=== PATIENT | female | born 1980 | race Two or more races ===

== ENCOUNTER 2021-06-12 07:16 | Emergency (ER) | payer BC ==
[~2021-06-12] VITALS: Ht 172.7 cm; Wt 69.4 kg
--- NOTE | 2021-06-12 07:25 | NUR ---
[id number] FROM HOME C/O LOWER BACK PAIN RADIATES TO THE LEGS S/P TRIPPED. AAOX4 IN PAIN 12/07
--- NOTE | 2021-06-12 07:35 | NUR ---
AT BED SIDE
[2021-06-12] MEDS ORDERED: ONDANSETRON 4 MG TAB.RAPDIS ONE (07:47)
[2021-06-12] MEDS ORDERED: MORPHINE SULFATE INJ 4 MG/ML DISP.SYRIN ONE (07:47)
[2021-06-12] MEDS ORDERED: ONDANSETRON 4 MG TAB.RAPDIS PO ONE (08:00)
[2021-06-12] MEDS ORDERED: MORPHINE SULFATE INJ 2 MG/ML DISP.SYRIN IM ONE (08:00)
--- NOTE | 2021-06-12 08:05 | NUR ---
X-RAY TECH. AT BED SIDE
[2021-06-12] MEDS ORDERED: IBUPROFEN 600 MG TABLET ONE (09:43)
[2021-06-12] MEDS ORDERED: HYDROCODONE/APAP 10/325MG TABLET ONE (09:43)
[2021-06-12] MEDS ORDERED: IBUP-1955 PO (09:55)
[2021-06-12] MEDS ORDERED: HYDR-3972 PO (09:55)
[2021-06-12] MEDS ORDERED: IBUPROFEN 600 MG TABLET PO ONE (10:00)
[2021-06-12] MEDS ORDERED: HYDROCODONE/APAP 10/325MG TABLET PO ONE (10:00)
--- NOTE | 2021-06-12 10:07 | NUR ---
Patient discharged to home in stable condition. Written and verbal after care instructions given. Patient verbalizes understanding of instruction.
[2021-06-12 10:08] VITALS: BP 102/60
== END 2021-06-12 10:09 | disposition home or self-care (01) ==
LOC: ER 07:34
DX: S30.0XXA Contusion of lower back and pelvis, initial encounter (principal); W01.0XXA Fall on same level from slipping, tripping and stumbling without subsequent striking against object, initial encounter; Y93.89 Activity, other specified; Y92.89 Other specified places as the place of occurrence of the external cause; Y99.8 Other external cause status
CPT/HCPCS: 72110; 72220; 96372; 99284; J2270; Q0162